=== PATIENT | female | born 1965 | race Caucasian/White ===

== ENCOUNTER 2019-07-25 06:14 | Emergency (ER) | payer BC ==
[~2019-07-25] VITALS: Ht 160 cm; Wt 68.0 kg
[2019-07-25] MEDS ORDERED: NORVASC2.5 MG PO (06:30)
[2019-07-25] MEDS ORDERED: NORVASC5 MG PO (06:31)
== END 2019-07-25 16:36 | disposition home or self-care (01) ==
LOC: ER 06:14
DX: K80.20 Calculus of gallbladder without cholecystitis without obstruction (principal); K52.9 Noninfective gastroenteritis and colitis, unspecified